=== PATIENT | male | born 1945 | race Caucasian/White ===

== ENCOUNTER → 2018-11-27 | Outpatient (CLI) | payer MEDICARE | LOC: LABWHC1 14:14 | PROVIDERS: ATTEND Ophthalmology | DX: G44.221 Chronic tension-type headache, intractable (principal) | CPT/HCPCS: 36415; 85652; 86140 ==

== ENCOUNTER → 2018-12-20 | Outpatient (CLI) | payer MEDICARE ==
--- NOTE | 2018-12-20 21:49 | MR ---
EXAMINATION TYPE: MR brain wo/w con DATE OF EXAM: 12/20/2018 COMPARISON: NONE HISTORY: Vision changes rt eye TECHNIQUE: Multiplanar, multisequence images of the brain and brainstem is performed without and with IV contras t, utilizing 10 mL intravenous Gadavist . FINDINGS: Diffusion weighted images demonstrate no evidence of a recent infarct or other diffusion ab normality. There is no worrisome extra-axial fluid collection. There is diffuse ventricular and sulc al prominence. There are scattered foci of T2 hyperintensity seen throughout the white matter bilater ally. Proximally 20-30 scattered lesions are seen. Lesions are nonspecific in appearance and distribu tion. Midline structures demonstrate normal morphology. The craniocervical junction appears within normal limits. Mild mucosal thickening involving ethmoid sinuses is present. Mild mucosal thickening involvi ng inferior bilateral maxillary sinuses is seen. The globes are intact bilaterally. There is homogeneous enhancing extra-axial lesion inferior right f rontal lobe just above right orbital apex seen axial image 14, coronal image 12, and sagittal image 9 9 measuring approximately 1.8 cm AP diameter by 1.7 cm transversely by 1.0 cm craniocaudal diameter c onsistent with meningioma. Suprasellar cistern is maintained. Optic chiasm is not effaced. IMPRESSION: 1. 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 Advise neurosurgical referral. 2. Background of mild diffuse cerebral atrophy and mild to moderate chronic small vessel ischemic ragini nge is noted.
== END | disposition home or self-care (01) ==
LOC: RADMRIMAIN 15:26
PROVIDERS: ATTEND Family Medicine
DX: D32.0 Benign neoplasm of cerebral meninges (principal); G31.9 Degenerative disease of nervous system, unspecified; I67.82 Cerebral ischemia
CPT/HCPCS: 70553; A9585

== ENCOUNTER → 2019-01-15 | Outpatient (CLI) | payer MEDICARE ==
--- NOTE | 2019-01-15 12:09 | US ---
EXAMINATION TYPE: US carotid duplex BILAT DATE OF EXAM: 01/15/2019 COMPARISON: NONE CLINICAL HISTORY: H54.51 Low vision, right eye, normal vision left e. Pt states vision changes to rig ht eye EXAM MEASUREMENTS: RIGHT: Peak Systolic Velocity (PSV) cm/sec ----- Right CCA: 123.8 ----- Right ICA: 93.2 ----- Right ECA: 148.1 ICA/CCA ratio: 0.8 RIGHT: End Diastole cm/sec ----- Right CCA: 22.0 ----- Right ICA: 19.4 ----- Right ECA: 10.7 LEFT: Peak Systolic Velocity (PSV) cm/sec ----- Left CCA: 105.7 ----- Left ICA: 100.9 ----- Left ECA: 131.9 ICA/CCA ratio: 1.0 LEFT: End Diastole cm/sec ----- Left CCA: 22.8 ----- Left ICA: 32.6 ----- Left ECA: 10.7 VERTEBRALS (direction of flow): Right Vertebral: Antegrade Left Vertebral: Antegrade Rhythm: Normal No significant stenosis seen Grayscale, color Doppler, spectral Doppler imaging performed of the carotid arteries. Waveform analys is does not show significant stenosis of the internal carotid arteries. IMPRESSION: No hemodynamic significant stenosis of the proximal internal carotid arteries bilaterall y by Doppler criteria, an indirect measurement of carotid stenosis
--- NOTE | 2019-01-16 16:25 | ECHOF ---
Referral Reason:H54.51 Low vision, right eye, normal vision left e MEASUREMENTS -------- HEIGHT: 177.8 cm WEIGHT: 97.1 kg BP: 139/67 RVIDd: 3.1 cm (< 3.3) IVSd: 1.2 cm (0.6 - 1.1) LVIDd: 4.0 cm (3.9 - 5.3) LVPWd: 1.2 cm (0.6 - 1.1) IVSs: 1.3 cm LVIDs: 3.3 cm LVPWs: 1.6 cm LA Diam: 3.4 cm (2.7 - 3.8) LAESV Index (A-L): 27.69 ml/m Ao Diam: 3.2 cm (2.0 - 3.7) AV Cusp: 2.4 cm (1.5 - 2.6) MV EXCURSION: 19.197 mm (> 18.000) MV EF SLOPE: 51 mm/s (70 - 150) EPSS: 0.4 cm MV E Amos: 0.89 m/s MV DecT: 157 ms MV A Amos: 0.59 m/s MV E/A Ratio: 1.50 RAP: 5.00 mmHg RVSP: 22.41 mmHg FINDINGS -------- Resting bradycardia (HR<60bpm). This was a technically good study. The left ventricular size is normal. There is borderline concentric left ventricular hypertrophy. Overall left ventricular systolic function is normal with, an EF between 60 - 65 %. The right ventricle is normal in size. Normal LA size by volume 22+/-6 ml/m2. The right atrium is normal in size. Aortic valve is trileaflet and is mildly thickened. The mitral valve leaflets are mildly thickened. Mild tricuspid regurgitation present. Right ventricular systolic pressure is normal at < 35 mmHg. Trace/mild (physiologic) pulmonic regurgitation. The aortic root size is normal. IVC Not well visulized. There is no pericardial effusion. CONCLUSIONS -------- 1. Resting bradycardia (HR<60bpm). 2. This was a technically good study. 3. The left ventricular size is normal. 4. There is borderline concentric left ventricular hypertrophy. 5. Overall left ventricular systolic function is normal with, an EF between 60 - 65 %. 6. The right ventricle is normal in size. 7. Normal LA size by volume 22+/-6 ml/m2. 8. The right atrium is normal in size. 9. Aortic valve is trileaflet and is mildly thickened. 10. The mitral valve leaflets are mildly thickened. 11. Mild tricuspid regurgitation present. 12. Right ventricular systolic pressure is normal at < 35 mmHg. 13. Trace/mild (physiologic) pulmonic regurgitation. 14. The aortic root size is normal. 15. IVC Not well visulized. 16. There is no pericardial effusion. CORRECTIONS SERGEANT: Nathalie Burgos RDCS
== END | disposition home or self-care (01) ==
LOC: RADUSMAIN 09:16
PROVIDERS: ATTEND Family Medicine
DX: H54.51 Low vision, right eye, normal vision left eye (principal); H53.8 Other visual disturbances
CPT/HCPCS: 93306; 93880

== ENCOUNTER → 2019-06-14 | Outpatient (CLI) | payer MEDICARE ==
[~2019-06-14] MED LIST: REGADENOSON 0.4 MG/5 ML SYRINGE IV ONE
--- NOTE | 2019-06-14 12:06 | NM ---
EXAMINATION TYPE: NM stress lexiscan cardiolite DATE OF EXAM: 06/14/2019 COMPARISON: NONE HISTORY: I 48.0, hypertension, hyperlipidemia, and family history of coronary artery disease. TECHNIQUE: After the intravenous administration of 10.4 mCi Tc 99m Sestamibi - Cardiolite resting SP ECT images acquired 55 minutes post injection. The patient received 0.4mg Lexiscan, 25.4 mCi Tc 99m Sestamibi - Stress images obtained [address] injection FINDINGS: Review of stress and rest SPECT images demonstrates no distinct perfusion abnormality. Gated analysi s shows normal wall motion with an estimated left ventricular ejection fraction of 60 %. TID is calcu lated within normal limits at 1.13. IMPRESSION: No scintigraphic evidence for reversible ischemia.
--- NOTE | 2019-06-14 12:19 | EST ---
EXERCISE STRESS AGE: 74 SEX: M HT: 70" WT: 215 PROTOCOL: Lexiscan Cardiolite Stress Test. HEART RATE REST: 50 BLOOD PRESSURE REST: 143/80 MAXIMUM HEART RATE ACHIEVED: 68 MAXIMUM BLOOD PRESSURE: 160/90 85% MPHR: 126 100% MPHR: 148 INDICATIONS: Paroxysmal atrial fibrillation. CLINICAL INFORMATION: Baseline EKG revealed a sinus mechanism without significant ST changes. Patient was administered Lexiscan as per protocol, heart rate went up from 50 to 68 beats per minute and blood pressure changed from 143/80 to 160/90. EKG remained unremarkable. By EKG criteria, this is unremarkable Lexiscan stress test. The nuclear scan results which are more pertinent will be reported by the radiologist. MMODL / IJN: [id number] /
== END | disposition home or self-care (01) ==
LOC: RADNMMAIN 08:22
PROVIDERS: ATTEND Internal Medicine Cardiovascular Disease
DX: I48.0 Paroxysmal atrial fibrillation (principal)
CPT/HCPCS: 93017; 78452; A9500; J2785

== ENCOUNTER 2019-08-08 00:19 | Emergency (ER) | payer MEDICARE ==
[2019-08-08 00:32] VITALS: RESP 18
--- NOTE | 2019-08-08 00:45 | ED ---
Chest Pain HPI - General Chief Complaint: Chest Pain Stated Complaint: Chest Pain Time Seen by Provider: 08/08/19 00:42 Source: patient, EMS Mode of arrival: EMS Limitations: no limitations - History of Present Illness Initial Comments: Shorty is a pleasant 74 yo male who presents to the ER today for evaluation of right sided chest/flank pain that began approximately 3h prior to arrival. Patient describes the pain as being in right side, sharp in nature, worse with deep inspiration. Not associated with any exertional chest pain palpitations or shortness of breath. Patient denies any abdominal pain nausea vomiting or diarrhea. Denies any dysuria hematuria or history of kidney stones. Patient does state that he recently had a URI for nearly a month but was feeling much better recently. - Related Data Previous Rx's Medication Instructions Recorded Azithromycin [Zithromax Z-pack] 0 mg PO DIRECTED #6 tab 08/08/19 Allergies Allergy/AdvReac Type Severity Reaction Status Date / Time No Known Allergies Allergy Verified 08/08/19 00:32 Review of Systems ROS Statement: Those systems with pertinent positive or pertinent negative responses have been documented in the HPI. ROS Other: All systems not noted in ROS Statement are negative. EKG Findings - EKG Comments: EKG Findings:: EKG was obtained due to complaint of chest pain, EKG was obtained at 12:32 AM, rate is 60 rhythm is sinus there is normal axis there are normal intervals, OH 160, QRS 88, QTC is [address] elevations there are deep T-wave inversions in lead 3 no evidence of acute infarction. Past Medical History Past Medical History: No Reported History Additional Past Medical History / Comment(s): HTN History of Any Multi-Drug Resistant Organisms: MRSA MDRO Source:: skin Additional Past Surgical History / Comment(s): esophagus, tumor removed brain Past Psychological History: No Psychological Hx Reported Smoking Status: Never smoker Past Alcohol Use History: Rare Past Drug Use History: None Reported General Exam - General Exam Comments Initial Comments: Physical Exam GENERAL: Patient is well-developed and well-nourished. Patient is nontoxic and well- hydrated and is in no distress. HENT: Normocephalic, Atraumatic. EYES: PERRL, EOMI PULMONARY: Unlabored respirations. No audible rales rhonchi or wheezing was noted. CARDIOVASCULAR: There is a regular rate and rhythm without any murmurs gallops or rubs. ABDOMEN: Soft and nontender with normal bowel sounds. SKIN: Skin is clear with no lesions or rashes and otherwise unremarkable. : Deferred NEUROLOGIC: Patient is alert and oriented x3. Moving all extremities spontaneously MUSCULOSKELETAL: Normal extremities with adequate strength and full range of motion. No lower extremity swelling or edema. No calf tenderness. PSYCHIATRIC: Normal psychiatric evaluation. Limitations: no limitations Course Vital Signs 08/08/19 08/08/19 00:27 01:55 Temperature 98.2 F Pulse Rate 62 60 Respiratory 18 18 Rate Blood Pressure 166/87 110/59 O2 Sat by Pulse 97 95 Oximetry Chest Pain MDM - MDM The patient was seen and evaluated history is from patient and family at bedside A 74-year-old gentleman with sudden onset of severe pleuritic right-sided chest pain with some pain in the right flank. Labs and chest x-ray were ordered on the labs with a mildly elevated lipase normal liver function, no leukocytosis no significant abnormalities. These results were discussed with the patient, however given his symptoms difficult to rule out possible PE versus liver pathology therefore computed tomography scan of both the chest and abdomen were obtained. Computed tomography scan resulted with evidence of pneumonia with pleural reaction also an incidental finding of a kidney mass. These results were discussed extensively with the patient and family. Patient will be prescribed azithromycin for pneumonia. Supportive care measures were discussed. Return parameters were discussed. Patient and family members at bedside were advised of the finding of the mass the likelihood that this could be cancer and the need for close follow-up. Patient scheduled to see his urologist Dr. Macedo in early August advised to contact the office today to see if they can follow- up sooner. Disposition Clinical Impression: RLL pneumonia, Pleurisy with effusion, Renal mass Disposition: HOME SELF-CARE Condition: Stable Additional Instructions: You have a right lower lobe pneumonia with inflammatory reaction which is the cause of ear pain today. He be given antibiotics. He can take Tylenol for pain. Make sure taking deep breaths return to the ER if you have any worsening shortness of breath or chest pain. Her computed tomography scan also identified a mass in your kidney that is concerning for possible cancer. He need follow-up with her primary care provider and urologist for further testing and management of this. Prescriptions: Azithromycin [Zithromax Z-pack] 0 mg PO DIRECTED #6 tab Is patient prescribed a controlled substance at d/c from ED?: No Referrals: Arlin Torres DO [Primary Care Provider] - 1-2 days
[2019-08-08 01:02] LABS: Basophils # (A) 0.2 k/uL (0-0.2); Basophils % (A) 1 %; Eosinophils # (A) 0.2 k/uL (0-0.7); Eosinophils % (A) 2 %; HGB 14.9 gm/dL (13.0-17.5); Lymphocytes % (A) 27 %; MCH 28.7 pg (25.0-35.0); MCHC 32.5 g/dL (31.0-37.0); MCV 88.1 fL (80.0-100.0); Mean Platelet Volume 8.3; Monocytes # (A) 0.6 k/uL (0-1.0); Monocytes % (A) 6 %; Neutrophils # (A) 6.8 k/uL (1.3-7.7); Neutrophils % (A) 62 %; Platelet Count 202 k/uL (150-450); RBC 5.22 m/uL (4.30-5.90); RDW 12.8 % (11.5-15.5)
[2019-08-08] MEDS ORDERED: ONDANSETRON 4 MG/2 ML VIAL IVP STA (01:06)
[2019-08-08] MEDS ORDERED: MORPHINE SULFATE 4 MG/ML SYRINGE IVP STA (01:06)
[2019-08-08 01:11] LABS: INR 0.9 (<1.2); Partial Thromboplastin Time 25.5 sec (22.0-30.0); Prothrombin Time 9.8 sec (9.0-12.0)
[2019-08-08 01:15] LABS: Albumin 4.3 g/dL (3.5-5.0); Calcium 9.3 mg/dL (8.4-10.2); Magnesium 2.1 mg/dL (1.6-2.3); Potassium 4.8 mmol/L (3.5-5.1); Total Bilirubin 0.8 mg/dL (0.2-1.3)
--- NOTE | 2019-08-08 01:20 | XR ---
EXAMINATION TYPE: XR chest 2V DATE OF EXAM: 08/08/2019 COMPARISON: NONE HISTORY: Chest pain TECHNIQUE: 2 views FINDINGS: Heart is normal. Lungs are clear of infiltrate. There are no hilar masses. There is no pleu ral effusion. There is minimal pleural reaction lateral right lung base. There are chest leads. No he art failure. Bony thorax is intact. IMPRESSION: Minimal pleural reaction at the right lung base. Normal heart.
--- NOTE | 2019-08-08 03:44 | CT ---
EXAMINATION TYPE: CT chest angio for PE DATE OF EXAM: 08/08/2019 COMPARISON: None HISTORY: RUQ pain, pleural reaction CT DLP: 518.1 mGycm Automated exposure control for dose reduction was used. CONTRAST: Performed with IV Contrast, patient injected with 80 mL of Isovue 370. There are 3-D post processed images. There is small right pleural effusion. There is right lower lobe infiltrate and atelectasis. There is some patchy atelectasis left lower lobe. Heart size is normal. There is no pericardial effusion. There are a few bronchial lymph nodes up to 1 cm. There is no mediastinal adenopathy. Thoracic aorta is intact. There is no aneurysm or dissection. There is normal contrast opacification of the pulmonary arteries. There are no filling defects. There is multilevel spurring in the thoracic spine. I see no bony destructive process. Sternum is intact. There is partial visualization of a 2.2 cm solid mass lateral left kidney. IMPRESSION: No evidence of pulmonary embolism. Mild bronchial adenopathy. Bilateral basilar pulmonary infiltrates and atelectasis with pleural fluid . Solid left renal mass.
--- NOTE | 2019-08-08 03:49 | CT ---
EXAMINATION TYPE: CT abdomen pelvis w con DATE OF EXAM: 08/08/2019 COMPARISON: None HISTORY: RUQ pain CT DLP: 1588.7 mGycm Automated exposure control for dose reduction was used. CONTRAST: Performed with IV Contrast, patient injected with 80 mL of Isovue 370. Multiple axial sections were obtained from the diaphragm to the floor the pelvis with intravenous con trast. There is patchy infiltrate and atelectasis at the lung bases. There is small right pleural effusion. Liver shows no focal defect. Gallbladder pancreas spleen appear normal. Stomach appears normal. There is no adrenal mass. There is solid enhancing mass in the lateral left renal cortex and measures 2.4 cm. There is no hydro nephrosis. There is no retroperitoneal adenopathy. Bladder distends smoothly. Prostate is enlarged an d measures 6 cm. There is no inguinal hernia. There is no free fluid in the pelvis. There is no mesenteric edema. There is no ascites or free air. Appendix appears normal. There is no s ign of a bowel obstruction. Lumbar vertebra have normal alignment. There is no compression fracture. Bony pelvis is intact. IMPRESSION: Bilateral lower lobe pulmonary infiltrates and atelectasis. Small right pleural effusion. 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 Follow-up right recommended.
[2019-08-08] MEDS ORDERED: AZITHROMYCIN 500 MG TAB PO STA (03:57)
[2019-08-08 04:26] VITALS: BP 123/70; PULSE 62; TEMP 98.1
== END 2019-08-08 04:25 | disposition home or self-care (01) ==
LOC: EC 00:19
DX: J18.1 Lobar pneumonia, unspecified organism (principal); J90 Pleural effusion, not elsewhere classified; N28.89 Other specified disorders of kidney and ureter; I10 Essential (primary) hypertension
CPT/HCPCS: 36415; 93005; 83880; 80053; 83690; 83735; 84484; 85025; 85610; 85730; 71046; 71275; 74177; 99285; 96374; 96375; J2270; J2405; Q9967

== ENCOUNTER → 2019-10-09 | Outpatient (CLI) | payer MEDICARE ==
--- NOTE | 2019-10-09 11:22 | XR ---
EXAMINATION TYPE: XR chest 2V DATE OF EXAM: 10/09/2019 COMPARISON: 08/08/2019 HISTORY: Shortness of breath TECHNIQUE: Frontal and lateral views of the chest are obtained. FINDINGS: Scattered senescent parenchymal changes noted. Hyperinflation compatible with COPD. No evidence for infiltrate. No evidence for atelectasis. Heart size is stable. Mediastinal structures are stable and grossly unremarkable. No evidence for hilar prominence. Degenerative changes dorsal spine. IMPRESSION: 1. No evidence for acute pulmonary disease.
[2019-10-09 11:24] LABS: Basophils % (A) 0 %; Eosinophils # (A) 0.1 k/uL (0-0.7); Eosinophils % (A) 2 %; HCT 45.8 % (39.0-53.0); HGB 14.8 gm/dL (13.0-17.5); Lymphocytes # (A) 2.4 k/uL (1.0-4.8); Lymphocytes % (A) 41 %; MCH 28.3 pg (25.0-35.0); MCHC 32.4 g/dL (31.0-37.0); MCV 87.5 fL (80.0-100.0); Mean Platelet Volume 7.8; Monocytes # (A) 0.5 k/uL (0-1.0); Monocytes % (A) 8 %; Neutrophils # (A) 2.7 k/uL (1.3-7.7); Neutrophils % (A) 46 %; Platelet Count 205 k/uL (150-450); RBC 5.23 m/uL (4.30-5.90); WBC 5.8 k/uL (3.8-10.6)
[2019-10-09 11:30] LABS: Appearance,Urine Clear (Clear); Bilirubin,Urine Negative (Negative); Blood,Urine Negative (Negative); Color,Urine Light Yellow; Glucose,Urine (UA) Negative (Negative); Ketones,Urine Negative (Negative); Leukocyte Esterase,Urine Negative (Negative); Nitrite,Urine Negative (Negative); PH, Urine 5.5 (5.0-8.0); Protein,Urine Negative (Negative); Specific Gravity,Urine 1.011 (1.001-1.035); Urobilinogen,Urine <2.0 mg/dL (<2.0)
[2019-10-09 11:46] LABS: Calcium 9.6 mg/dL (8.4-10.2); Potassium 4.7 mmol/L (3.5-5.1)
[2019-10-09 12:10] LABS: Prothrombin Time 10.5 sec (9.0-12.0)
== END | disposition home or self-care (01) ==
LOC: LABPAT 10:28
PROVIDERS: ATTEND Urology
DX: Z01.818 Encounter for other preprocedural examination (principal); Z01.812 Encounter for preprocedural laboratory examination; D41.02 Neoplasm of uncertain behavior of left kidney; Z79.01 Long term (current) use of anticoagulants; R31.29 Other microscopic hematuria; R31.1 Benign essential microscopic hematuria; I10 Essential (primary) hypertension
CPT/HCPCS: 71046; 80048; 81003; 85025; 85610; 87086

== ENCOUNTER → 2019-11-13 | Outpatient (CLI) | payer MEDICARE ==
[2019-11-13 10:28] LABS: Basophils % (A) 0 %; Eosinophils # (A) 0.2 k/uL (0-0.7); Eosinophils % (A) 3 %; HCT 45.9 % (39.0-53.0); HGB 14.9 gm/dL (13.0-17.5); Lymphocytes # (A) 2.4 k/uL (1.0-4.8); Lymphocytes % (A) 42 %; MCH 29.1 pg (25.0-35.0); MCHC 32.5 g/dL (31.0-37.0); MCV 89.6 fL (80.0-100.0); Mean Platelet Volume 8.1; Monocytes # (A) 0.3 k/uL (0-1.0); Monocytes % (A) 4 %; Neutrophils # (A) 2.9 k/uL (1.3-7.7); Neutrophils % (A) 49 %; Platelet Count 200 k/uL (150-450); RBC 5.12 m/uL (4.30-5.90); RDW 13.7 % (11.5-15.5); WBC 5.8 k/uL (3.8-10.6)
[2019-11-13 10:31] LABS: Prothrombin Time 10.7 sec (9.0-12.0)
[2019-11-13 10:38] LABS: Calcium 9.3 mg/dL (8.4-10.2); Potassium 4.4 mmol/L (3.5-5.1)
== END | disposition home or self-care (01) ==
LOC: LABPAT 10:01
PROVIDERS: ATTEND Urology
DX: Z01.818 Encounter for other preprocedural examination (principal); D41.02 Neoplasm of uncertain behavior of left kidney; Z79.01 Long term (current) use of anticoagulants
CPT/HCPCS: 36415; 80048; 85025; 85610

== ENCOUNTER → 2019-12-11 | Outpatient (CLI) | payer MEDICARE ==
[2019-12-11 11:07] LABS: Basophils % (A) 0 %; Eosinophils # (A) 0.1 k/uL (0-0.7); Eosinophils % (A) 2 %; HGB 15.5 gm/dL (13.0-17.5); Lymphocytes # (A) 2.2 k/uL (1.0-4.8); Lymphocytes % (A) 42 %; MCH 30.1 pg (25.0-35.0); MCHC 33.6 g/dL (31.0-37.0); MCV 89.5 fL (80.0-100.0); Monocytes # (A) 0.3 k/uL (0-1.0); Monocytes % (A) 6 %; Neutrophils # (A) 2.6 k/uL (1.3-7.7); Neutrophils % (A) 48 %; Platelet Count 179 k/uL (150-450); RBC 5.14 m/uL (4.30-5.90); RDW 13.4 % (11.5-15.5); WBC 5.4 k/uL (3.8-10.6)
[2019-12-11 11:20] LABS: Appearance,Urine Clear (Clear); Bilirubin,Urine Negative (Negative); Blood,Urine Negative (Negative); Color,Urine Yellow; Glucose,Urine (UA) Negative (Negative); Ketones,Urine Negative (Negative); Leukocyte Esterase,Urine Negative (Negative); Nitrite,Urine Negative (Negative); PH, Urine 5.5 (5.0-8.0); Protein,Urine Negative (Negative); Specific Gravity,Urine 1.016 (1.001-1.035); Urobilinogen,Urine <2.0 mg/dL (<2.0)
[2019-12-11 11:23] LABS: Calcium 9.5 mg/dL (8.4-10.2); Potassium 4.2 mmol/L (3.5-5.1)
[2019-12-11 11:28] LABS: Prothrombin Time 10.5 sec (9.0-12.0)
== END | disposition home or self-care (01) ==
LOC: LABWHC1 10:09
PROVIDERS: ATTEND Urology
DX: Z01.818 Encounter for other preprocedural examination (principal); D41.02 Neoplasm of uncertain behavior of left kidney; Z79.01 Long term (current) use of anticoagulants; R31.29 Other microscopic hematuria
CPT/HCPCS: 36415; 80048; 81003; 85025; 85610; 86850; 86900; 86901; 87086

== ENCOUNTER → 2019-12-16 | Outpatient (CLI) | payer MEDICARE | END | disposition home or self-care (01) | LOC: LABWHC1 09:46 | PROVIDERS: ATTEND Urology | DX: U07.1 COVID-19 (principal) | CPT/HCPCS: 87635 ==

== ENCOUNTER 2019-12-18 12:46 | Day surgery (SDC) | payer MEDICARE ==
[2019-12-17 08:42] VITALS: BMI 31.5
--- NOTE | 2019-12-17 11:26 | P.HPIHPCON ---
History of Present Illness H&P Date: 12/18/19 Chief Complaint: left renal mass Mr Ann is a 74 yo male with hx of 2.5 cm left sided renal mass. I Discussed with him the option of robotic radical nephrectomy and robotic partial nephrectomy. He wanted to proceed with robotic partial nephrectomy. He understood the risk of benefit of each approach. Discussed with him with robotic partial nephrectomy there is risk of bleeding, infection and injury to nearby organs. Discussed with him risk of injury to the spleen, bowel, blood vessels. Discussed with him risk from anesthesia including heart attack, stroke, blood clot and even . I also discussed of conversion to radical nephrectoomy. I discussed with him given his CKD there is potential he would require dialysis if we do convert to radical nephrecttomy. He understood all risks and agreed to proceed with surgery Consent for Procedure: I have explained the operation/procedure to the patient, including the risks, benefits, side effects, alternative therapies (including not receiving the proposed treatment or service), the likelihood of the patient achieving his/her goals, and potential recuperation problems for the procedure/sedation/analgesia, as well as any blood products, if indicated. I also explained to the patient the risks, benefits and side effects of the alternatives, as well as the risks related to not receiving the proposed procedure, care, treatment, or services. Past Medical History Past Medical History: Atrial Fibrillation, Hypertension Additional Past Medical History / Comment(s): HX OF BENIGN BRAIN TUMOR (MENINGIOMA), PLEURISY (JUL 2019), PAST GERD RESOLVED WITH SHERRON FUNDOPLASTY., BPH., TUMOR LEFT KIDNEY. History of Any Multi-Drug Resistant Organisms: MRSA Date of last positivie culture/infection: 2007 MDRO Source:: FINGER Past Surgical History: Orthopedic Surgery Additional Past Surgical History / Comment(s): BRAIN TUMOR REMOVED (MENINGIOMA MARCH 2019), LAP SHERRNO (2009), FINGER LEFT HAND SURGERY (MRSA), MENISCUS KNEE SURGERY Past Anesthesia/Blood Transfusion Reactions: No Reported Reaction, Motion Sickness Past Psychological History: No Psychological Hx Reported Smoking Status: Former smoker Past Alcohol Use History: None Reported, Rare Additional Past Alcohol Use History / Comment(s): SMOKED FOR [employer]OX 5 YEARS WHILE IN [place]- QUIT 1971 Past Drug Use History: None Reported - Past Family History Mother Family Medical History: CVA/TIA Medications and Allergies Home Medications Medication Instructions Recorded Confirmed Type Apixaban [Eliquis] 5 mg PO BID 10/15/19 12/17/19 History Lisinopril [Zestril] 5 mg PO HS 10/15/19 12/17/19 History Metoprolol Tartrate [Lopressor] 25 mg PO BID 10/15/19 12/17/19 History Allergies Allergy/AdvReac Type Severity Reaction Status Date / Time No Known Allergies Allergy Verified 12/17/19 08:05 Surgical - Exam - General well developed, well nourished, no distress - Eyes normal ocular movement - Abdomen Abdomen: soft, non tender Assessment and Plan Assessment: 74 yo male with hx of left sided renal mass -OR for Left robotic partial nephrectomy
[~2019-12-18 12:46] MED LIST changes: +DEXAMETHASONE SOD PHOSPHATE 10 MG/ML 1 ML VIAL IV ONE; +HYDROmorphone 0.5 MG/0.5 ML SYRINGE IVP PRN; +LIDOCAINE 1% (10MG/ML) FOR IV START INTRADERMA PRN; +MANNITOL 20% IV ONE; +MANNITOL 25% 12.5 GM/50 ML VIAL IV STA; +ONDANSETRON 4 MG/2 ML VIAL IVP ONE; -REGADENOSON 0.4 MG/5 ML SYRINGE IV ONE; +SCOPOLAMINE 1.5MG/72HR PATCH TRANSDERM ONE
[2019-12-18] MEDS ORDERED: LACTATED RINGERS 1,000 ML IV ONE ×2 (13:14)
[2019-12-18] MEDS ORDERED: HYDROmorphone 1 MG/ML 1 ML SYRINGE IVP PRN (14:16)
[2019-12-18] MEDS ORDERED: ONDANSETRON 4 MG/2 ML VIAL IVP PRN (14:16)
[2019-12-18] MEDS ORDERED: ACETAMINOPHEN TAB 325 MG TAB PO PRN (14:16)
[2019-12-18] MEDS ORDERED: MIDAZOLAM 2 MG/2 ML VIAL ONE (15:08)
[2019-12-18] MEDS ORDERED: NEOSTIGMINE 1 MG/ML 10 ML VIAL ONE (15:08)
[2019-12-18] MEDS ORDERED: ROCURONIUM BROMIDE 10 MG/ML 5 ML VIAL IV ONE (15:08)
[2019-12-18] MEDS ORDERED: LIDOCAINE 1% INJ 10MG/ML (20 ML MDV) ONE (15:08)
[2019-12-18] MEDS ORDERED: fentaNYL (PF) 50 MCG/ML 2 ML AMP ONE (15:08)
[2019-12-18] MEDS ORDERED: GLYCOPYRROLATE 0.2 MG/ML 2 ML VIAL ONE (15:08)
[2019-12-18] MEDS ORDERED: PROPOFOL 10 MG/ML 20 ML VIAL IV ONE (15:08)
[2019-12-18] MEDS ORDERED: SUCCINYLCHOLINE CHLORIDE 100 MG/5 ML SYR IV ONE (15:08)
[2019-12-18] MEDS ORDERED: HYDROmorphone (PF) 1 MG/ML ONE (15:08)
[2019-12-18] MEDS ORDERED: ePHEDrine SULFATE/0.9% NACL/PF 50 MG/5 ML SYRINGE IV ONE (15:08)
[2019-12-18] MEDS ORDERED: METOPROLOL TARTRATE 5 MG/5 ML VIAL IVP ONE (15:08)
[2019-12-18] MEDS ORDERED: BUPIVACAIN-EPI 0.25%-1:200,000 30 ML VIAL SQ ONE ×2 (15:44→17:58)
--- NOTE | 2019-12-18 18:13 | P.OP ---
Date of Procedure: 12/18/19 Preoperative Diagnosis: left renal mass Postoperative Diagnosis: same Procedure(s) Performed: robotic assisted partial nephrectomy, intrapoperative renal ultrasound(Left) Implants: none Anesthesia: DINOA Surgeon: Magno Christianson [employer] Operations Specialist #1: William Jones Estimated Blood Loss (ml): 50 Pathology: other (left renal mass) Condition: stable Disposition: PACU Indications for Procedure: Mr Ann is a 74 yo male with hx of 2.5 cm left sided renal mass. I Discussed with him the option of robotic radical nephrectomy and robotic partial nephrectomy. He wanted to proceed with robotic partial nephrectomy. He understood the risk of benefit of each approach. Discussed with him with robotic partial nephrectomy there is risk of bleeding, infection and injury to nearby organs. Discussed with him risk of injury to the spleen, bowel, blood vessels. Discussed with him risk from anesthesia including heart attack, stroke, blood clot and even . I also discussed of conversion to radical nephrectoomy. I discussed with him given his CKD there is potential he would require dialysis if we do convert to radical nephrecttomy. He understood all risks and agreed to proceed with surgery Operative Findings: fibrotic tissue along the hilum partially exophytic renal tumor 2 renal arteries Description of Procedure: The Patient was brought to the operating room, general anesthesia was induced. ingram catheter was placed. Patient was then placed in modified flank position and all pressure points were padded. He was prepped and draped in sterile fashion. Insuflation was obtained using veress needle. After adequate insuflation was obtained a 8 mm robotic trocor was placed. Robotic trocars and biology laboratory assistant ports were placed under direct vision. The robot was docked into place. The colon was mobilized medially by incising along the white line of Toldt. further mobilization of pancrease and spleen was performed. Of note patient panrease was stuck to gerotas fascia. The ureter was identified as it crosses over the gonadal vessel and the Psoas plane was developed. Further dissection was carried to the hilum and the renal vein and artery were dissected and prepared for clamping. Of note patient had significant fibrotic tissue along the hilum which made the dissection more challenging. Of note patient had two renal arteries and each was dissected separately. At this time the mid pole of the kidney was defatted. Further defatting exposed the tumor. The tumor edges were scored using cautery with the biology laboratory assistant of the drop in ultrasound. Bulldogs were placed on the renal artery, both renal arteries were clamped separately using two bulldogs. . Attention was carried to the tumor, and the tumor was excised with adequate margins. the defect was closed in two layer using 3-0 V lock for the inner layer and 2-0 V lock for outer layer using the sliding clip technique. The bulldogs were removed and there was no evidence of bleeding from the tumor bed. The total clamp time was 25 minutes. Tisseal and surgicell was applied to the tumor bed. The tumor was placed in the endocatch bag. The robot was de-docked. Fascia was closed with 2-0 vicryl in figure of eight fashion. Skin was closed with subcuticular sutures and dermabond. The patient was awoken from general anesthesia in stable condition. Please refer to the final pathology report for final diagnosis.
[2019-12-18] MEDS: LACTATED RINGERS 1,000 ML IV SCH (19:41)
[2019-12-18] MEDS: HEPARIN SODIUM,PORCINE 5,000 UNIT/ML 1 ML VIAL SQ SCH ×2 (19:41→22:48)
[2019-12-18] MEDS: METHOCARBAMOL 500 MG TAB PO SCH ×2 (19:56→19:57)
[2019-12-18] MEDS: METOPROLOL TARTRATE 25 MG TAB PO SCH (19:57)
[2019-12-18] MEDS: D5-0.45% NACL WITH KCL 20MEQ/L 1,000 ML IV SCH (20:23)
[2019-12-18 21:22] LABS: Calcium 8.8 mg/dL (8.4-10.2); Potassium 4.7 mmol/L (3.5-5.1)
[2019-12-18 21:27] LABS: Basophils % (A) 0 %; Eosinophils % (A) 0 %; HCT 45.1 % (39.0-53.0); HGB 14.6 gm/dL (13.0-17.5); Lymphocytes # (A) 0.7 k/uL (1.0-4.8); Lymphocytes % (A) 6 %; MCH 29.3 pg (25.0-35.0); MCHC 32.3 g/dL (31.0-37.0); MCV 90.7 fL (80.0-100.0); Mean Platelet Volume 8.6; Monocytes # (A) 0.3 k/uL (0-1.0); Monocytes % (A) 3 %; Neutrophils # (A) 9.6 k/uL (1.3-7.7); Neutrophils % (A) 90 %; Platelet Count 164 k/uL (150-450); RBC 4.98 m/uL (4.30-5.90); RDW 13.1 % (11.5-15.5); WBC 10.6 k/uL (3.8-10.6)
[2019-12-19] MEDS: LACTATED RINGERS 1,000 ML IV SCH (06:00)
[2019-12-19] MEDS: D5-0.45% NACL WITH KCL 20MEQ/L 1,000 ML IV SCH ×2 (06:01→13:21)
--- NOTE | 2019-12-19 08:15 | P.DS ---
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 He underwent robotically assisted laparoscopic partial nephrectomy performed by Dr. Christianson on 12/17. A Taqueria-Hernandez drain was left in place. He remained afebrile and relatively comfortable overnight. He continued to have some bloody drainage from the Taqueria-Hernandez and it was elected to leave this in place at the time of discharge. His incisions appear to be healing well. He was tolerating regular diet and his pain was controllable without anything stronger than Tylenol. The patient will be discharged following removal of his Donald catheter. He will remain off Eliquis until seen by Dr. Christianson next week. The pathology report will be reviewed with him at that time. Procedures: Robotically assisted laparoscopic partial left nephrectomy 12/18/2019 Patient Condition at Discharge: Good Plan - Discharge Summary Discharge Rx Participant: No New Discharge Prescriptions: No Action Metoprolol Tartrate [Lopressor] 25 mg PO BID Lisinopril [Zestril] 5 mg PO HS Discharge Medication List Lisinopril [Zestril] 5 mg PO HS 10/15/19 [History] Metoprolol Tartrate [Lopressor] 25 mg PO BID 10/15/19 [History] Follow up Appointment(s)/Referral(s): Magno Christianson MD [STAFF PHYSICIAN] - 12/25/19 Activity/Diet/Wound Care/Special Instructions: Do not resume Eliquis until approved by Dr. Christianson next week. Pending Studies Pending Results: Pathology report
[2019-12-19 08:29] VITALS: BP 130/73; PULSE 63; RESP 17; TEMP 97.9
[2019-12-19] MEDS: METOPROLOL TARTRATE 25 MG TAB PO SCH (08:43)
[2019-12-19] MEDS: METHOCARBAMOL 500 MG TAB PO SCH ×2 (08:43→13:19)
[2019-12-19] MEDS: HEPARIN SODIUM,PORCINE 5,000 UNIT/ML 1 ML VIAL SQ SCH (08:43)
== END 2019-12-19 13:46 ==
LOC: OR 12:46 → 4SSUR 18:19 → OR 12-19 13:46
PROVIDERS: ATTEND Urology
DX: C64.2 Malignant neoplasm of left kidney, except renal pelvis (principal); I48.0 Paroxysmal atrial fibrillation; Z79.01 Long term (current) use of anticoagulants; Z79.899 Other long term (current) drug therapy; Z87.891 Personal history of nicotine dependence; Z86.011 Personal history of benign neoplasm of the brain; Z86.14 Personal history of Methicillin resistant Staphylococcus aureus infection; Z82.49 Family history of ischemic heart disease and other diseases of the circulatory system
CPT/HCPCS: 80048; 85025; 88307; 50543; C1762; J2250; J1644 ×2; J1100; J2710; J0690; J2405; J2001; J3010; J1170; J0330; J2704; 86850; 86900; 86901

== ENCOUNTER → 2020-07-28 | Outpatient (CLI) | payer MEDICARE ==
--- NOTE | 2020-07-28 12:06 | XR ---
EXAMINATION TYPE: XR chest 2V DATE OF EXAM: 07/28/2020 COMPARISON: 06/08/2020 INDICATION: Kidney cancer TECHNIQUE: Frontal and lateral views of the chest are obtained. FINDINGS: The heart size is normal. The pulmonary vasculature is normal. The lungs are clear. Osseous structures are unremarkable. IMPRESSION: 1. No acute pulmonary process.
--- NOTE | 2020-07-28 16:25 | MR ---
EXAMINATION TYPE: MR kidney wo/w con DATE OF EXAM: 07/28/2020 COMPARISON: CT abdomen and pelvis August 08, 2019 HISTORY: Hx of Left Kidney tumor removal , Renal neoplasm CONTRAST: Standard multiplanar, multisequence MRI departmental protocol utilizing 10 mL intravenous Gadavist ga dolinium contrast. Imaging performed of the abdomen focusing on the bilateral kidneys. FINDINGS: Kidneys: Post ablative change with focal scarring mid to lower pole level laterally left kidney measu res present. There is central 1.0 cm thin-walled parapelvic cyst upper to midpole level coronal image 22. No hydronephrosis or new concerning solid or cystic renal masses in the left kidney. There is persistent 1.1 cm thin-walled cyst in the right kidney mid to lower pole level coronal image 20 with few tiny parapelvic cysts centrally and a slightly larger 1.9 cm thin-walled cyst lower pole level right kidney coronal image 17. No hydronephrosis in the right kidney. 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 Some cortical thinning is present bilaterally. No hydronephrosis is noted bilaterally. Patent draining left renal vein. Other: Lung bases remain clear. Somewhat contracted gallbladder. No biliary dilatation. No concerning liver masses. Spleen and pancreas are within normal limits. Slight prominence of left adrenal gland with signal dropout consistent with lipid rich benign hyperplasia. No suspicious bowel dilatation. Vi sualized osseous structures are intact. No intra-abdominal ascites or suspicious adenopathy. There ar e some prominent but subcentimeter retroperitoneal lymph nodes particularly left paraaortic region re demonstrated. No interval enlargement is noted. IMPRESSION: Interval successful treatment or ablation of the partially exophytic ball-shaped lesion m id to lower pole level laterally left kidney. No suspicious new Masses are identified.
== END | disposition home or self-care (01) ==
LOC: RADMRIMAIN 10:31
PROVIDERS: ATTEND Urology
DX: C64.9 Malignant neoplasm of unspecified kidney, except renal pelvis (principal); Z90.5 Acquired absence of kidney
CPT/HCPCS: 71046; 74183; A9585

== ENCOUNTER → 2021-08-02 | Outpatient (CLI) | payer MEDICARE ==
--- NOTE | 2021-08-02 13:02 | XR ---
EXAMINATION TYPE: XR chest 2V DATE OF EXAM: 08/02/2021 COMPARISON: Chest x-ray July 28, 2020. HISTORY: Left-sided nephrectomy. Kidney cancer. TECHNIQUE: Frontal and lateral views of the chest are obtained. FINDINGS: Slightly elevated left hemidiaphragm redemonstrated. There is no suspicious focal air spac e opacity, pleural effusion, or pneumothorax seen. The cardiac silhouette size is stable and within normal limits. Bridging osteophytes in the thoracic spine. IMPRESSION: No acute process. No significant change from prior.
--- NOTE | 2021-08-02 15:29 | CT ---
EXAMINATION TYPE: CT abdomen wo/w con DATE OF EXAM: 08/02/2021 COMPARISON: 08/08/2019 HISTORY: 76-year-old male C64.9, follow-up renal cell carcinoma. TECHNIQUE: Contiguous axial scanning of the abdomen before and after administration of 80 ml Isovue 3 00 IV contrast. Delayed images through the kidneys and coronal/sagittal reconstructions performed. CT DLP: 2024.7 mGycm Automated exposure control for dose reduction was used. FINDINGS: Heart normal size without pericardial effusion. Surgical material at the GE junction suggesting prior Saad fundoplication. Some minimal strandy atelectasis in the lower lungs. Approximately 3 pulmonary nodules in the visualized right lower lobe ranging in size from 2 mm to 4 m m. Tiny 3 mm posterior left basilar pulmonary nodule, axial image 8. Findings not well-seen previously due to basilar atelectasis on prior exam. No focal liver lesion or biliary ductal dilatation. Portal venous system is patent. Gallbladder, spleen, and pancreas within normal limits. There is a centrally located hypodense lesion measuring 1.3 cm in the mid right kidney better seen on the delayed kidney images, cyst is suspected but follow-up is recommended. Punctate 3 mm nonobstructive left renal calculus. Postresection changes along the lateral aspect of t he left kidney. No suspicious nodularity or residual mass is seen here. Strandy perinephric density l ikely postsurgical change. Redemonstrated are nonenlarged and borderline enlarged retroperitoneal lymph nodes measuring up to 9 mm, unchanged from prior. Some scattered mid abdominal mesenteric lymph nodes are also redemonstrated measuring up to 6 mm, unc hanged. No progressive lymphadenopathy. No dilated small bowel, free fluid, or free air. Normal appendix. Mild stool burden. Possible fat density 1.8 cm lesion along the left lateral wall of the descending colon, axial image 41. Correlate for any acute pain to exclude epiploic appendiciti s. Pelvis not imaged. Bones: Patient is a lower thoracic finding. 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 IMPRESSION: 1. SMALL BASILAR PULMONARY NODULES MEASURING UP TO 4 MM ARE NONSPECIFIC. THERE WAS BASILAR ATELECTASI S ON THE PRIOR EXAM AND THE NODULES WERE PREVIOUSLY EITHER OBSCURED OR NOT PRESENT. RECOMMEND SHORT I NTERVAL FOLLOW-UP CT CHEST TO EXCLUDE THE POSSIBILITY OF METASTATIC PULMONARY NODULES. 2. A CENTRALLY LOCATED 1.3 cm HYPODENSITY IN THE MID RIGHT KIDNEY WAS NOT WELL SEEN PREVIOUSLY. AN EN LARGING CYST IS SUSPECTED. THIS SHOULD ALSO BE REASSESSED AT FOLLOW-UP. 3. POSTRESECTION CHANGE ALONG THE LATERAL LEFT KIDNEY. 4. STABLE NONENLARGED AND BORDERLINE SIZED RETROPERITONEAL LYMPH NODES MEASURING UP TO 9 MM. THESE AR E PROBABLY REACTIVE/POST INFLAMMATORY AND CAN ALSO BE REASSESSED AT FOLLOW-UP.
== END | disposition home or self-care (01) ==
LOC: RADCTMAIN 12:24
PROVIDERS: ATTEND Urology
DX: R93.421 Abnormal radiologic findings on diagnostic imaging of right kidney (principal); Z85.528 Personal history of other malignant neoplasm of kidney
CPT/HCPCS: 82565; 84520; 71046; 74170; 36415; Q9967

== ENCOUNTER → 2022-05-10 | Outpatient (CLI) | payer MEDICARE ==
--- NOTE | 2022-05-11 09:49 | CT ---
EXAMINATION TYPE: CT chest w con CT DLP: 2482.1 mGycm, Automated exposure control for dose reduction was used. DATE OF EXAM: 05/10/2022 5:14 PM COMPARISON: Chest 11/17/2021 CLINICAL INDICATION:Male, 76 years old with history of C64.2 MALIGNANT NEOPLASM OF LEFT KIDNEY, EXCEP T RE, Follow up for Malignant neoplasm of left kidney removed TECHNIQUE: Multiple axial images were obtained through the chest. Sagittal and coronal reformats were created for review. Contrast used:80cc mL of Isovue 300 with IV Contrast. Oral contrast used: none. FINDINGS: LUNGS/ PLEURA: Small nodular changes including: Right lower lobe 3 mm series 3 image 37, stable Right lower lobe 3 mm series 3 image 33, stable Left lingula sub-2 mm nodule image 37, stable No evidence of focal consolidation, pneumothorax or pleural effusion. No new or enlarging pulmonary n odules. AIRWAY: Patent and unremarkable. HEART: Size within normal limits. MEDIASTINUM: No gross evidence of adenopathy. VASCULATURE: No aortic aneurysm. Mild atherosclerosis of the arterial vasculature. MUSCULOSKELETAL: No acute osseous abnormalities, multilevel disc degeneration changes throughout the spine. SOFT TISSUES/LYMPH NODES: Unremarkable. LOWER NECK: No significant findings. UPPER ABDOMEN: No significant findings. IMPRESSION: 1. No evidence for mastoid disease. 2. Stable nodular densities dating back to at least 08/02/2021 and may be sequela from prior infecti ous/inflammatory process seen on 08/08/2019.
--- NOTE | 2022-05-11 09:49 | CT ---
EXAMINATION TYPE: CT abdomen wo/w con CT DLP: 2482.1 mGycm, Automated exposure control for dose reduction was used. DATE OF EXAM: 05/10/2022 5:14 PM COMPARISON: CT abdomen pelvis most recent from 11/17/2021 CLINICAL INDICATION:Male, 76 years old with history of C64.2 MALIGNANT NEOPLASM OF LEFT KIDNEY, EXCEP T RE; Follow up for Malignant neoplasm of left kidney removed TECHNIQUE: Axial CT of the abdomen. Sagittal and coronal [facility] Scan with and without contrast. Contrast used:80cc mL of Isovue 300 without and with IV Contrast, Oral contrast used: with Oral Contrast FINDINGS: LOWER CHEST: Unremarkable ABDOMEN LIVER: Unremarkable GALLBLADDER AND BILE DUCTS: Unremarkable. PANCREAS: Unremarkable. SPLEEN: Unremarkable. ADRENAL GLANDS: Unremarkable. KIDNEYS AND URETERS: Postsurgical changes to left kidney. No abnormal soft tissue to suggest recurren ce. Overall morphology is similar to prior on 11/17/2021. Nonobstructing bilateral renal calculi. No hy dronephrosis. STOMACH AND BOWEL: No evidence of bowel obstruction. PERITONEUM: No evidence of pneumoperitoneum or free fluid. VASCULATURE: No evidence of aortic aneurysm. Atherosclerosis of the arterial vasculature. MUSCULOSKELETAL: No acute osseous abnormalities, level disc degeneration changes throughout the spine as well as the sacroiliac joints. LYMPH NODES: No gross evidence for lymphadenopathy. Nonenlarged lymph nodes are on the retroperitoneu m are not significantly changed from prior. SOFT TISSUE/ABDOMINAL WALL: Unremarkable IMPRESSION: Post surgical changes of the left kidney without evidence of recurrence or metastatic disease.
== END | disposition home or self-care (01) ==
LOC: RADCTMAIN 15:21
PROVIDERS: ATTEND Urology
DX: C64.2 Malignant neoplasm of left kidney, except renal pelvis (principal); R91.8 Other nonspecific abnormal finding of lung field
CPT/HCPCS: 82565; 84520; 71260; 74170; 36415; Q9967 ×2

== ENCOUNTER → 2023-06-22 | Outpatient (CLI) | payer MEDICARE ==
--- NOTE | 2023-06-22 15:46 | US ---
EXAMINATION TYPE: US kidneys/renal and bladder DATE OF EXAM: 06/22/2023 COMPARISON: CT 2021 CLINICAL INDICATION: Male, 78 years old with history of C64.2 MALIGNANT NEOPLASM OF LEFT KIDNEY, EXCE PT RE; EXAM MEASUREMENTS: Right Kidney: 13.6 x 5.2 x 4.3 cm Left Kidney: 11.1 x 4.9 x 4.3 cm Right Kidney: 1.5cm anechoic area mid pole, 2.3cm hypoechoic area inferior pole Left Kidney: no hydronephrosis or masses seen Bladder: not fully distended There is no evidence for hydronephrosis at this point in time. No nephrolithiasis is seen. Right mid pole 1.5 cm thin-walled cyst. Hypoechoic lesion within the inferior pole the right kidney. No defini tive left renal mass identified. Cortical measured differentiation is maintained bilaterally. The uri nary bladder is underdistended which limits evaluation. IMPRESSION: 1. No hydronephrosis or nephrolithiasis. 2. Right inferior pole 2.3 cm indeterminate hypoechoic lesion. Further evaluation with CT or MR abdom en renal mass protocol is recommended. 3. Right midpole simple renal cyst.
== END | disposition home or self-care (01) ==
LOC: RADUSWWP 14:49
PROVIDERS: ATTEND Urology
DX: C64.2 Malignant neoplasm of left kidney, except renal pelvis (principal); N28.1 Cyst of kidney, acquired
CPT/HCPCS: 76770

== ENCOUNTER → 2023-06-22 | Outpatient (CLI) | payer MEDICARE ==
--- NOTE | 2023-06-22 15:47 | XR ---
EXAMINATION TYPE: XR chest 2V DATE OF EXAM: 06/22/2023 3:41 PM COMPARISON: Chest radiographs from 08/02/2021, CT chest 05/10/2022 TECHNIQUE: XR chest 2V Frontal and lateral views of the chest. CLINICAL INDICATION:Male, 78 years old with history of C64.2; FINDINGS: Lungs/Pleura: There is no evidence of pleural effusion, focal consolidation, or pneumothorax. Chroni c senescent parenchymal change. Pulmonary vascularity: Unremarkable. Heart/mediastinum: Cardiomediastinal silhouette is unremarkable. Atherosclerotic calcifications are seen in the aorta. Musculoskeletal: No acute osseous pathology. Findings compatible with DISH. IMPRESSION: No acute cardiopulmonary disease/process.
== END | disposition home or self-care (01) ==
LOC: RADXRMAIN 15:30
PROVIDERS: ATTEND Urology
DX: C64.2 Malignant neoplasm of left kidney, except renal pelvis (principal)
CPT/HCPCS: 71046

== ENCOUNTER → 2023-07-07 | Outpatient (CLI) | payer MEDICARE ==
--- NOTE | 2023-07-09 13:13 | MR ---
EXAMINATION TYPE: MR kidney wo/w con DATE OF EXAM: 07/07/2023 6:36 PM CLINICAL INDICATION:Male, 78 years old with history of C64.2 MALIGNANT NEOPLASM OF LEFT KIDNEY; PHH, Right renal mass, Abnormal U/S Hx of Lt kidney neoplasm COMPARISON: Ultrasound 07/22/2023. TECHNIQUE: Multiplanar multi-sequence imaging was performed without contrast. Post contrast imaging was performed. Post IV contrast subtraction images were also submitted for review. IV Contrast: 9.5 cc Gadavist FINDINGS: LOWER CHEST: No gross irregularity. ABDOMEN Liver: No evidence for cirrhosis. Mild signal dropout, shift of phase imaging. Gallbladder and Bile ducts: No evidence for ductal dilation, or biliary stricture or evidence of chol edocholithiasis. The gallbladder is within normal limits. Pancreas: No ductal dilation. No evidence for solid mass. Spleen: Normal for size. Adrenal glands: Unremarkable. Kidneys: Right kidney: duplex right renal collecting system with scattered high T2 peripelvic and renal cortic al cysts. No evidence for abnormal postcontrast enhancement. There are at least 2 renal veins and nancy al arteries. Scattered areas of cortical thinning suggestive of prior injuries. Left kidney: No evidence for obstructive uropathy or enhancing mass. Cortical thinning suggestive of prior injuries noted. There are at least 2 renal veins and renal arteries. Stomach and Bowel: No evidence for bowel wall thickening or evidence for obstruction.. Peritoneum: No evidence of pneumoperitoneum or free fluid. Vasculature: No aortic aneurysm. Musculoskeletal: The osseous structures appear intact. Lymph Nodes: No gross evidence for lymphadenopathy. Abdominal wall: Unremarkable. IMPRESSION: 1. No evidence for renal mass. Simple appearing right renal cysts. There are 2 arteries into renal v eins bilaterally and suspected duplex collecting systems bilaterally. No suspicious renal masses. 2. Mild hepatic steatosis.
== END | disposition home or self-care (01) ==
LOC: RADMRIMAIN 17:29
PROVIDERS: ATTEND Urology
DX: C64.2 Malignant neoplasm of left kidney, except renal pelvis (principal); K76.0 Fatty (change of) liver, not elsewhere classified; N28.1 Cyst of kidney, acquired; N28.89 Other specified disorders of kidney and ureter
CPT/HCPCS: 74183; A9585

== ENCOUNTER → 2023-09-26 | Outpatient (CLI) | payer MEDICARE ==
[2023-09-26 16:31] LABS: HCT 44.5 % (39.6-50.0); HGB 14.4 g/dL (13.0-17.0); MCH 29.8 pg (27.0-32.0); MCHC 32.4 g/dL (32.0-37.0); MCV 91.9 FL (80.0-97.0); Mean Platelet Volume 11.8 FL (9.5-12.2); NRBC Per 100 WBC 0 X 10*3/uL (0.00-0.01); Platelet Count 201 X 10*3/uL (140-440); RBC 4.84 X 10*6/uL (4.40-5.60); RDW 12.9 % (11.5-14.5); WBC 6.57 X 10*3/uL (4.50-10.00)
[2023-09-26 18:40] LABS: Blood Urea Nitrogen 21.5 mg/dL (9.0-27.0); Carbon Dioxide 27.8 mmol/L (21.6-31.8); Chloride 103 mmol/L (96-109); Potassium 5.2 mmol/L (3.5-5.5); Sodium 140 mmol/L (135-145)
== END | disposition home or self-care (01) ==
LOC: LABPAT 12:12
PROVIDERS: ATTEND Internal Medicine Interventional Cardiology
DX: Z01.812 Encounter for preprocedural laboratory examination (principal); R94.39 Abnormal result of other cardiovascular function study
CPT/HCPCS: 80051; 82565; 84520; 85027

== ENCOUNTER → 2024-08-05 | Outpatient (CLI) | payer MEDICARE ==
--- NOTE | 2024-08-07 13:49 | MR ---
EXAMINATION TYPE: MR kidney wo/w con DATE OF EXAM: 08/05/2024 3:19 PM COMPARISON: MRI 07/07/2023, 07/26/2020, CLINICAL INDICATION: Male, 79 years old with history of C64.2 MALIGNANT NEOPLASM OF LEFT KIDNEY, EXCE PT RE, Follow Up MR for tumor on kidney TECHNIQUE: Multiplanar multi-sequence imaging was performed without contrast. Post contrast imaging was performed. Post IV contrast subtraction images were also submitted for review. IV Contrast: 9.5ml mL Gadobutrol FINDINGS: LOWER CHEST: Small hiatal hernia, No gross irregularity. ABDOMEN Liver: No evidence for cirrhosis. Mild signal dropout on chemical shift of phase imaging is no longer present. Lesion near the anterior margin of the right hepatic lobe does not demonstrate significant postcontrast enhancement and is unchanged from priors possibly exophytic hepatic cyst. Gallbladder and Bile ducts: No evidence for ductal dilation, or biliary stricture or evidence of chol edocholithiasis. The gallbladder is within normal limits. Pancreas: No ductal dilation. No evidence for solid mass. Spleen: Normal for size. Adrenal glands: Unremarkable. Kidneys: Right kidney: duplex right renal collecting system with scattered high T2 peripelvic and renal cortic al cysts. No evidence for abnormal postcontrast enhancement. There are at least 2 renal veins and nancy al arteries. Scattered areas of cortical thinning suggestive of prior injuries. Left kidney: No evidence for obstructive uropathy or enhancing mass. Cortical thinning suggestive of prior injuries noted. There are at least 2 renal veins and renal arteries. Stomach and Bowel: No evidence for bowel wall thickening or evidence for obstruction.. Peritoneum: No evidence of pneumoperitoneum or free fluid. Vasculature: No aortic aneurysm. Musculoskeletal: The osseous structures appear intact. Lymph Nodes: No gross evidence for lymphadenopathy. Abdominal wall: Unremarkable. IMPRESSION: 1. Posttreatment changes left kidney without evidence for suspicious postcontrast enhancement enhanc ement on today's exam. No evidence for renal mass. Simple appearing right renal cysts. There are 2 ar teries into renal veins bilaterally and suspected duplex collecting systems bilaterally. No suspiciou s renal masses. [facility], , 08/07/2024 1:46 PM
== END | disposition home or self-care (01) ==
LOC: RADMRIMAIN 13:57
PROVIDERS: ATTEND Urology
DX: C64.2 Malignant neoplasm of left kidney, except renal pelvis (principal); N28.1 Cyst of kidney, acquired
CPT/HCPCS: 74183; A9585

== ENCOUNTER 2025-03-05 02:18 | Emergency (ER) | payer MEDICARE ==
--- NOTE | 2025-03-05 02:49 | CT ---
EXAM: CT Head Without Intravenous Contrast CLINICAL HISTORY: ITS.REASON CT Reason: FALL ON THINNERS TECHNIQUE: Axial computed tomography images of the head/brain without intravenous contrast. CTDI is 45.3 mGy and DLP is 1189.2 mGy-cm. This CT exam was performed using one or more of the following dose reduction techniques: automated exposure control, adjustment of the mA and/or kV according to patient size, and/or use of iterative reconstruction technique. COMPARISON: No relevant prior studies available. FINDINGS: Brain: No hemorrhage or mass effect. Ventricles: No hydrocephalus. Bones/joints: Unremarkable. Soft tissues: Unremarkable. Sinuses: No air fluid level. Mastoid air cells: Clear. IMPRESSION: No acute hemorrhage, hydrocephalus, or mass effect. EXAM: CT Cervical Spine Without Intravenous Contrast CLINICAL HISTORY: ITS.REASON CT Reason: FALL ON THINNERS TECHNIQUE: Axial computed tomography images of the cervical spine without intravenous contrast. CTDI is 15.1 mGy and DLP is 451.5 mGy-cm. This CT exam was performed using one or more of the following dose reduction techniques: automated exposure control, adjustment of the mA and/or kV according to patient size, and/or use of iterative reconstruction technique. COMPARISON: No relevant prior studies available. FINDINGS: Vertebrae: No acute fracture. Discs/spinal canal/neural foramina: degenerative changes. Soft tissues: No prevertebral swelling. IMPRESSION: No acute fracture or subluxation.
[2025-03-05 03:05] LABS: Basophils # (A) 0.02 10*3/uL (0.00-0.10); Basophils % (A) 0.2 %; Eosinophils # (A) 0.17 10*3/uL (0.04-0.35); Eosinophils % (A) 1.9 %; HCT 43.9 % (39.6-50.0); HGB 15.2 g/dL (13.0-17.0); Lymphocytes # (A) 3.15 10*3/uL (0.90-5.00); Lymphocytes % (A) 35.2 %; MCH 30.9 pg (27.0-32.0); MCHC 34.6 g/dL (32.0-37.0); MCV 89.2 fL (80.0-97.0); Monocytes # (A) 0.66 10*3/uL (0.20-1.00); Monocytes % (A) 7.4 %; Neutrophils # (A) 4.93 10*3/uL (1.80-7.70); Neutrophils % (A) 55.1 %; Platelet Count 210 10*3/uL (140-440); RBC 4.92 10*6/uL (4.40-5.60); RDW 13.2 % (11.5-14.5); WBC 8.95 10*3/uL (4.50-10.00)
--- NOTE | 2025-03-05 03:14 | ED ---
Syncope HPI - General Stated Complaint: syncope Time Seen by Provider: 03/05/25 02:34 Source: family, EMS Mode of arrival: EMS Limitations: no limitations - History of Present Illness Initial Comments: This patient is a 79-year-old man arriving to have evaluation after syncopal e pisode with ground-level fall. The patient complains of pain to the buttock area from the fall. He states he also hit his head though the headache there is mild he does take Eliquis for anticoagulation. Patient denies any strokelike symptoms. No chest pain or dyspnea. MD Complaint: collapsed Onset/Timin -: hour(s) Prodromal Symptoms: none -: second(s) Witnessed: yes - by bystander Injuries Sustained Associated with Event: Head, Other Current Symptoms: none Context: standing up Treatments Prior to Arrival: none - Related Data Home Medications Medication Instructions Recorded Confirmed Metoprolol Tartrate [Lopressor] 25 mg PO BID 10/15/19 10/09/23 lisinopriL [Zestril] 5 mg PO HS 10/15/19 10/09/23 Coq 10 (Unk) 100 mg PO DAILY 10/04/23 10/09/23 Rosuvastatin Calcium 10 mg PO DAILY 10/04/23 10/09/23 Previous Rx's Medication Instructions Recorded Apixaban [Eliquis] 2.5 mg PO BID #180 tab 10/10/23 Aspirin EC [Ecotrin Low Dose] 81 mg PO DAILY #30 tab 10/10/23 Clopidogrel [Plavix] 75 mg PO DAILY #90 tab 10/10/23 Nitroglycerin Sl Tabs [Nitrostat] 0.4 mg SUBLINGUAL Q5M PRN #25 tab 10/10/23 metFORMIN HCL [Glucophage] 500 mg PO BID #0 10/10/23 Allergies Allergy/AdvReac Type Severity Reaction Status Date / Time No Known Allergies Allergy Verified 03/05/25 02:50 Review of Systems ROS Statement: Those systems with pertinent positive or pertinent negative responses have been documented in the HPI. ROS Other: All systems not noted in ROS Statement are negative. Constitutional: Denies: fever, chills, weakness Eyes: Denies: vision change ENT: Denies: epistaxis Respiratory: Denies: cough, dyspnea Cardiovascular: Reports: syncope. Denies: chest pain, palpitations, edema Gastrointestinal: Denies: abdominal pain, nausea, vomiting, diarrhea Genitourinary: Denies: dysuria, hematuria Musculoskeletal: Reports: as per HPI, other (Buttock pain) Skin: Denies: rash Neurological: Reports: headache. Denies: weakness, numbness, confusion Hematological/Lymphatic: Reports: easy bleeding Past Medical History Past Medical History: Atrial Fibrillation, Cancer, Diabetes Mellitus, Hyperlipidemia, Hypertension Additional Past Medical History / Comment(s): abnormal stress test/us, kidney cancer on left History of Any Multi-Drug Resistant Organisms: MRSA Date of last positivie culture/infection: 12 yrs ago MDRO Source:: skin Past Surgical History: Hernia Repair, Orthopedic Surgery Additional Past Surgical History / Comment(s): esophagus, (anuradha) tumor removed brain tumor 2018, removed from kidney,2019, torn meniscus repair, finger surgery, Past Anesthesia/Blood Transfusion Reactions: No Reported Reaction, Motion Sickness Smoking Status: Former smoker - Past Family History Mother Family Medical History: CVA/TIA General Exam Limitations: no limitations General appearance: alert, in no apparent distress Head exam: Present: atraumatic, normocephalic Eye exam: Present: normal appearance. Absent: scleral icterus, conjunctival injection ENT exam: Present: normal oropharynx Neck exam: Present: normal inspection Respiratory exam: Present: normal lung sounds bilaterally. Absent: respiratory distress, wheezes, rales, rhonchi, stridor, chest wall tenderness, accessory muscle use Cardiovascular Exam: Present: regular rate, normal rhythm, normal heart sounds. Absent: systolic murmur, diastolic murmur, rubs, gallop GI/Abdominal exam: Present: soft. Absent: distended, tenderness, guarding, rebound, rigid, mass Extremities exam: Present: normal inspection, normal capillary refill. Absent: pedal edema, calf tenderness Back exam: Present: normal inspection. Absent: CVA tenderness (R), CVA tenderness (L) Neurological exam: Present: alert, oriented X3, CN II-XII intact. 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 I interpreted this as negative for acute bony injury, negative for acute intracranial hemorrhage, mass effect or midline shift. CT obtained because the patient had fall and is on eliquis, the patient also having moderate tenderness concerning for possible fracture. The patient had chest x-ray that I interpreted as negative for acute infiltrate, pneumothorax, congestive heart failure Was pt. sent in by a medical professional or institution (, [facility], LEPIDOPTERIST, urgent care, hospital, or prison...) When possible be specific @ -[No] Did you speak to anyone other than the patient for history (EMS, parent, family, police, friend...)? What history was obtained from this source @ -[No] Did you review nursing and triage notes (agree or disagree)? Why? @ -[I reviewed and agree with nursing and triage notes] Were old charts reviewed (outside hosp., previous admission, EMS record, old EKG, old radiological studies, urgent care reports/EKG's, prison records)? Report findings @ -[No old charts were reviewed] Differential Diagnosis (chest pain, altered mental status, abdominal pain women, abdominal pain men, vaginal bleeding, weakness, fever, dyspnea, syncope, headache, dizziness, GI bleed, back pain, seizure, CVA, palpatations, mental health, musculoskeletal)? @ -[Differential Syncope: Valvular disease, hypertrophic cardiomyopathy, pulmonary embolism, tamponade, tachycardia, bradycardia, MD, hypovolemia, hemorrhage, dissection, anemia, intracranial hemorrhage, seizure, hypoglycemia, carbon monoxide poisoning, this is not meant to be an all-inclusive list. EKG interpreted by me (3pts min.). @ -[I interpreted as above] X-rays interpreted by me (1pt min.). @ -[I interpreted as above CT interpreted by me (1pt min.). @ -[I interpreted as above U/S interpreted by me (1pt. min.). @ -[None done] What testing was considered but not performed or refused? (CT, X-rays, U/S, labs)? Why? @ -[None] What meds were considered but not given or refused? Why? @ -[None] Did you discuss the management of the patient with other professionals (professionals i.e. ., PA, LEPIDOPTERIST, lab, RT, psych nurse, hospital social worker, [employer], teacher, duty officer, case management rn)? Give summary @ -[No] Was smoking cessation discussed for >3mins.? @ -[No] Was critical care preformed (if so, how long)? @ -[No] Were there social determinants of health that impacted care today? How? (Homelessness, low income, unemployed, alcoholism, drug addiction, transportation, low edu. Level, literacy, decrease access to med. care, [facility], rehab)? @ -[No] Was there de-escalation of care discussed even if they declined (Discuss DNR or withdrawal of care, Hospice)? DNR status @ -[No] What co-morbidities impacted this encounter? (DM, HTN, Smoking, COPD, CAD, Cancer, CVA, ARF, Chemo, Hep., AIDS, mental health diagnosis, sleep apnea, m orbid obesity)? @ -[History of atrial fibrillation, hypertension Was patient admitted / discharged? Hospital course, mention meds given and route, prescriptions, significant lab abnormalities, going to OR and other pertinent info. @ -[hospital course] Undiagnosed new problem with uncertain prognosis? @ -[No] Drug Therapy requiring intensive monitoring for toxicity (Heparin, Nitro, Insulin, Cardizem)? @ -[No] Were any procedures done? @ -[No] Diagnosis/symptom? @ -[Acute syncopal episode Closed head injury Fall with blood thinner use Contusion to buttock Acute, or Chronic, or Acute on Chronic? @ -[Acute Uncomplicated (without systemic symptoms) or Complicated (systemic symptoms)? @ -[Uncomplicated Side effects of treatment? @ -[No] Exacerbation, Progression, or Severe Exacerbation? @ -[No] Poses a threat to life or bodily function? How? (Chest pain, USA, MD, pneumonia, PE, COPD, DKA, ARF, appy, cholecystitis, CVA, Diverticulitis, Homicidal, Suicidal, threat to staff... and all critical care pts) @ -[No] All treatments are based on ideal body weight as in ED triage - Lab Data Result diagrams: 03/05/25 02:53 03/05/25 04:00 Lab Results 03/05/25 03/05/25 03/05/25 Range/Units 02:53 02:53 04:00 WBC 8.95 (4.50-10.00) 10*3/uL RBC 4.92 (4.40-5.60) 10*6/uL Hgb 15.2 (13.0-17.0) g/dL Hct 43.9 (39.6-50.0) % MCV 89.2 (80.0-97.0) fL MCH 30.9 (27.0-32.0) pg MCHC 34.6 (32.0-37.0) g/dL Plt Count 210 (140-440) 10*3/uL MPV 11.0 (9.5-12.2) fL Immature Gran % (Auto) 0.2 % Neutrophils % 55.1 % Lymphocytes % 35.2 % Monocytes % 7.4 % Eosinophils % 1.9 % Basophils % 0.2 % Immature Gran # 0.02 (0.00-0.04) 10*3/uL Neutrophils # 4.93 (1.80-7.70) 10*3/uL Lymphocytes # 3.15 (0.90-5.00) 10*3/uL Monocytes # 0.66 (0.20-1.00) 10*3/uL Eosinophils # 0.17 (0.04-0.35) 10*3/uL Basophils # 0.02 (0.00-0.10) 10*3/uL PT 11.1 (10.0-12.5) sec INR 1.0 (<1.2) APTT 22.7 (22.0-30.0) sec Sodium (137-145) mmol/L Potassium (3.5-5.1) mmol/L Chloride (98-107) mmol/L Carbon Dioxide (22-30) mmol/L Anion Gap mmol/L BUN (9-20) mg/dL Creatinine (0.66-1.25) mg/dL Est GFR (CKD-EPI)AfAm (>60 ml/min/1.73 sqM) Est GFR (CKD-EPI)NonAf (>60 ml/min/1.73 sqM) Glucose (74-99) mg/dL Calcium (8.4-10.2) mg/dL Total Bilirubin (0.2-1.3) mg/dL AST (17-59) U/L ALT (4-49) U/L Alkaline Phosphatase (38-126) U/L Troponin I 0.021 (0.000-0.034) ng/mL Total Protein (6.3-8.2) g/dL Albumin (3.5-5.0) g/dL 03/05/25 Range/Units 04:00 WBC (4.50-10.00) 10*3/uL RBC (4.40-5.60) 10*6/uL Hgb (13.0-17.0) g/dL Hct (39.6-50.0) % MCV (80.0-97.0) fL MCH (27.0-32.0) pg MCHC (32.0-37.0) g/dL Plt Count (140-440) 10*3/uL MPV (9.5-12.2) fL Immature Gran % (Auto) % Neutrophils % % Lymphocytes % % Monocytes % % Eosinophils % % Basophils % % Immature Gran # (0.00-0.04) 10*3/uL Neutrophils # (1.80-7.70) 10*3/uL Lymphocytes # (0.90-5.00) 10*3/uL Monocytes # (0.20-1.00) 10*3/uL Eosinophils # (0.04-0.35) 10*3/uL Basophils # (0.00-0.10) 10*3/uL PT (10.0-12.5) sec INR (<1.2) APTT (22.0-30.0) sec Sodium 138 (137-145) mmol/L Potassium 4.7 (3.5-5.1) mmol/L Chloride 102 (98-107) mmol/L Carbon Dioxide 23 (22-30) mmol/L Anion Gap 13 mmol/L BUN 27 H (9-20) mg/dL Creatinine 1.27 H (0.66-1.25) mg/dL Est GFR (CKD-EPI)AfAm 63 (>60 ml/min/1.73 sqM) Est GFR (CKD-EPI)NonAf 54 (>60 ml/min/1.73 sqM) Glucose 171 H (74-99) mg/dL Calcium 9.2 (8.4-10.2) mg/dL Total Bilirubin 1.2 (0.2-1.3) mg/dL AST 37 (17-59) U/L ALT 30 (4-49) U/L Alkaline Phosphatase 42 (38-126) U/L Troponin I (0.000-0.034) ng/mL Total Protein 6.6 (6.3-8.2) g/dL Albumin 4.0 (3.5-5.0) g/dL Disposition Clinical Impression: Closed head injury, Syncope Disposition: HOME SELF-CARE Condition: Good Instructions (If sedation given, give patient instructions): Syncope (DC), Head Injury (ED) Is patient prescribed a controlled substance at d/c from ED?: No Referrals: Arlin Torres DO [Primary Care Provider] - 1-2 days
--- NOTE | 2025-03-05 03:58 | XR ---
EXAM: XR Chest, 1 View CLINICAL HISTORY: ITS.REASON XR Reason: syncope TECHNIQUE: Frontal view of the chest. COMPARISON: 06/22/2023 FINDINGS: Lungs: Unremarkable. No consolidation. Pleural space: Unremarkable. No pneumothorax. Heart: Unremarkable. No cardiomegaly. Mediastinum: Unremarkable. Normal mediastinal contour. Bones/joints: Unremarkable. No acute fracture. IMPRESSION: Normal chest x-ray.
[2025-03-05 04:30] LABS: ALT 30 U/L (4-49); AST 37 U/L (17-59); African American GFR (CKD) 63 (>60 ml/min/1.73 sqM); Albumin 4.0 g/dL (3.5-5.0); Alkaline Phosphatase 42 U/L (38-126); Anion Gap 13 mmol/L; Blood Urea Nitrogen 27 mg/dL (9-20); Calcium 9.2 mg/dL (8.4-10.2); Carbon Dioxide 23 mmol/L (22-30); Chloride 102 mmol/L (98-107); Glucose 171 mg/dL (74-99); Non-African American GFR(CKD) 54 (>60 ml/min/1.73 sqM); Potassium 4.7 mmol/L (3.5-5.1); Sodium 138 mmol/L (137-145); Total Protein 6.6 g/dL (6.3-8.2)
[2025-03-05 04:39] LABS: INR 1.0 (<1.2); Partial Thromboplastin Time 22.7 sec (22.0-30.0); Prothrombin Time 11.1 sec (10.0-12.5)
[2025-03-05 05:54] VITALS: BP 100/70; PULSE 86; RESP 18; TEMP 97.8
== END 2025-03-05 05:54 | disposition home or self-care (01) ==
LOC: EC 02:18
DX: S09.90XA Unspecified injury of head, initial encounter (principal); R55 Syncope and collapse; I10 Essential (primary) hypertension; I48.91 Unspecified atrial fibrillation; Z79.01 Long term (current) use of anticoagulants; Z87.891 Personal history of nicotine dependence; W18.39XA Other fall on same level, initial encounter
CPT/HCPCS: 36415; 70450; 71045; 72125; 80053; 84484; 85025; 85610; 85730; 93005; 99285